=== PATIENT | female | born 1985 | race Caucasian/White ===

== ENCOUNTER 2018-04-29 10:10 | Inpatient (IN) ==
[2018-04-29] MEDS ORDERED: OXYTOCIN 30 UNITS/500 ML BAG IV PRN ×2 (13:49→14:19)
[2018-04-29] MEDS ORDERED: LACTATED RINGER'S 1,000 ML IV PRN (13:49)
[2018-04-29] MEDS ORDERED: LACTATED RINGER'S 1,000 ML IV SCH (14:00)
[2018-04-29] MEDS ORDERED: METHYLERGONOVINE MALEATE 0.2 MG/ML AMP ONE (14:11)
[2018-04-29] MEDS ORDERED: miSOPROStol 200 MCG TAB ONE (14:11)
[2018-04-29] MEDS ORDERED: SUPERCREAM 0.870% 15 GM JAR EXT PRN (14:19)
[2018-04-29] MEDS ORDERED: IBUPROFEN 600 MG TAB PO PRN (14:19)
[2018-04-29] MEDS ORDERED: HYDROCORTISONE ACETATE 25 MG SUPP PR PRN (14:19)
[2018-04-29] MEDS ORDERED: BENZOCAINE 20% AER SPR 82.5 GM CAN EXT PRN (14:19)
[2018-04-29] MEDS ORDERED: ACETAMINOPHEN 325 MG TAB PO PRN (14:19)
[2018-04-29] MEDS ORDERED: ACETAMINOPHEN W/CODEINE #3 1 TAB PO PRN (14:19)
[2018-04-29] MEDS ORDERED: BISACODYL 10 MG SUPP PR PRN (14:19)
[2018-04-29] MEDS ORDERED: DIPHTHERIA/TETANUS/PERTUSSIS 0.5 ML SYR/VIAL IM ONE (14:19)
[2018-04-29 14:29] LABS: Hematocrit (blood only) 39.6 % (37-47); Hemoglobin 13.4 g/dL (12.0-16.0); Mean Corpuscular Volume 92.1 fL (80-100); Mean Platelet Volume 10.5 fL (7.4-10.4); Platelet Count 292 K/uL (130-400); RDW Standard Deviation 46.8 fL (36.4-46.3); White Blood Count 12.16 K/uL (4.8-10.8)
[2018-04-29 14:30] LABS: Mean Corpuscular Hgb Conc 33.8 g/dL (32-36)
[2018-04-29] MEDS: DOCUSATE SODIUM 100 MG CAP PO SCH (21:08)
--- NOTE | 2018-04-30 01:31 | Delivery Summary ---
DATE OF OPERATION: 04/29/2018 The patient delivered a live infant in right occiput anterior presentation. There was no nuchal cord. was delivered and placed on mother's abdomen. Cord was clamped and cut after 5 minutes. Cord blood was obtained. 's weight and in the pediatric records. Placenta was spontaneously delivered. Inspection of the perineum showed a first-degree midline laceration, which was repaired with 2-0 Vicryl. There was good hemostasis at the end of the repair. Estimated blood loss is 600 mL. Baby and mother are doing well in recovery. I attest to the content of the Intraoperative Record and any orders documented therein. Any exception s are noted below.
[2018-04-30 06:42] LABS: Hematocrit (blood only) 36.9 % (37-47); Hemoglobin 12.5 g/dL (12.0-16.0); Mean Corpuscular Hgb Conc 33.9 g/dL (32-36); Mean Corpuscular Volume 91.8 fL (80-100); Mean Platelet Volume 10.4 fL (7.4-10.4); Platelet Count 232 K/uL (130-400); RDW Coefficient of Variation 13.8 % (11.5-14.5); Red Blood Count 4.02 M/uL (4.2-5.4); White Blood Count 15.33 K/uL (4.8-10.8)
--- NOTE | 2018-04-30 08:16 | Obstetrical Progress Note ---
Date of Service April 30, 2018 Subjective doing well plans to go home today Physical Exam 2 Vital Signs (Past 24 Hours): Last Vital Signs Temp 37.0 C 04/30/18 08:09 Pulse 84 04/30/18 08:09 Resp 18 04/30/18 03:50 BP 113/70 04/30/18 08:09 Pulse Ox 96 04/30/18 08:09 Constitutional: WD/WN, vitals as above comfortable Gastrointestinal (Abdomen): Abdomen soft non-tender fundus firm no bleeding no edema neg Donavon's PPD#1 for discharge Results & Data Diagnostic Findings Laboratory Results - last 48 hr 04/29/18 04/30/18 13:49 06:16 WBC 12.16 H 15.33 H RBC 4.30 4.02 L Hgb 13.4 12.5 Hct 39.6 36.9 L MCV 92.1 91.8 MCH 31.2 31.1 MCHC 33.8 33.9 RDW Std Deviation 46.8 H 46.0 RDW Coeff of Lb 14.0 13.8 Plt Count 292 232 MPV 10.5 H 10.4
[2018-04-30] MEDS: DOCUSATE SODIUM 100 MG CAP PO SCH (08:42)
[2018-04-30] MEDS ORDERED: FERROUS SULFATE 325 MG TAB PO SCH (09:00)
[2018-04-30] MEDS ORDERED: PRENATAL VITAMIN 1 TAB PO SCH (09:00)
[2018-04-30] MEDS ORDERED: BISACODYL 5 MG TABEC PO SCH (20:00)
== END 2018-04-30 15:15 | disposition home or self-care (01) | DRG 807 ==
LOC: OPB 10:10 → 4S1 10:17 → 4S2 18:33